=== PATIENT | female | born 1985 | race Hispanic/Latino ===

== ENCOUNTER 2023-06-09 10:40 | Day surgery (SDC) | payer SELFPAY ==
[2023-06-09 11:49] VITALS: BMI 32.8
[2023-06-09 11:54] LABS: Fetal Membranes Rupture No Membranes Rupture (No Rupture)
[2023-06-09 12:54] LABS: ALT (SGPT) 17 U/L (8-55); AST (SGOT) 17 U/L (5-34); Albumin 3.5 g/dL (3.5-5.0); Alkaline Phosphatase 110 U/L (40-110); Anion Gap 17 mmol/L (10-20); BUN (Urea Nitrogen) 7 mg/dL (7.0-18.7); Bilirubin, Total 0.4 mg/dL (0.2-1.2); Calc. Creatinine Clearance 189 mL/min (70-130); Calcium 9.2 mg/dL (7.8-10.44); Carbon Dioxide 17 mmol/L (22-29); Chloride 108 mmol/L (98-107); Estimated GFR 123; Glucose 76 mg/dL (70-105); Potassium 3.8 mmol/L (3.5-5.1); Protein, Total 6.5 g/dL (6.0-8.3); Sodium 138 mmol/L (136-145)
== END 2023-06-09 13:20 | disposition home or self-care (01) ==
LOC: CSHLD/OP 10:40
PROVIDERS: ATTEND Obstetrics & Gynecology
DX: O41.93X0 Disorder of amniotic fluid and membranes, unspecified, third trimester, not applicable or unspecified (principal); O99.213 Obesity complicating pregnancy, third trimester; E66.9 Obesity, unspecified; O26.893 Other specified pregnancy related conditions, third trimester; L29.9 Pruritus, unspecified; Z3A.35 35 weeks gestation of pregnancy; Z79.82 Long term (current) use of aspirin; Z90.49 Acquired absence of other specified parts of digestive tract
CPT/HCPCS: 80053; 82239; 84112; 87480; 87510; 87660

== ENCOUNTER 2023-07-02 19:00 | Inpatient (IN) | payer MEDICAID, OTHER, SELFPAY ==
[2023-07-02 19:38] VITALS: BMI 34.4
[2023-07-02] MEDS ORDERED: Bupivacaine 0.25% HCL 30 ML VIAL ONE (19:39)
[2023-07-02] MEDS ORDERED: hydrALAZINE 20 MG/ML VIAL SLOW IVP PRN (19:59)
[2023-07-02] MEDS ORDERED: Lidocaine 1% (PF) 30 ML VIAL SC PRN (19:59)
[2023-07-02] MEDS ORDERED: Ondansetron PF 4 MG/2 ML Vial IVP PRN (19:59)
[2023-07-02] MEDS ORDERED: Promethazine HCl 25 MG/ML VIAL IM PRN (19:59)
[2023-07-02] MEDS ORDERED: Oxytocin 30 units/NS 500 ML 500 ML IV SCH ×2 (20:00)
[2023-07-02] MEDS ORDERED: Misoprostol 100 MCG TAB VAG SCH (20:00)
[2023-07-02] MEDS ORDERED: Carboprost 250 MCG/ML AMP IM PRN (20:02)
[2023-07-02] MEDS ORDERED: Methylergonovine 0.2 MG/ML VIAL IM PRN (20:02)
[2023-07-02] MEDS ORDERED: Misoprostol 200 MCG TAB PR PRN (20:02)
[2023-07-02] MEDS ORDERED: Tranexamic Acid 1,000 MG/10 ML VIAL IVP PRN (20:02)
[2023-07-02] MEDS: Lactated Ringer's 1,000 ML IV SCH (20:15)
[2023-07-02 20:38] LABS: Hematocrit 37.3 % (34.9-44.5); Hemoglobin 12.3 g/dL (12.0-15.5); Mean Corpuscular Hemoglobin 29.4 pg (27.0-33.0); Mean Corpuscular Volume 89.2 fl (81.6-98.3); Mean Platelet Volume 11.7 fl (7.4-10.4); Platelet Count 242 10x3/uL (150-450); RBC Distribution Width 15.4 % (11.5-14.5); Red Blood Cell (RBC) Count 4.18 10x6/uL (3.90-5.03); White Blood Cell (WBC) Count 8.4 10x3/uL (3.5-10.5)
[2023-07-02 21:09] LABS: Hep B Surf Ag - L&D Non-Reactive S/CO (NonReactive); Syphilis Antibody Nonreactive (Nonreactive); Syphilis Antibody Index 0.06 S/CO (<1.00 Non-Reactive)
[2023-07-02] MEDS: Misoprostol 100 MCG TAB VAG SCH (21:26)
[2023-07-02] MEDS ORDERED: Acetaminophen 325 MG TAB PO PRN (21:40)
[2023-07-03] MEDS: Misoprostol 100 MCG TAB VAG SCH ×2 (00:35→05:28)
[2023-07-03] MEDS: Lactated Ringer's 1,000 ML IV SCH (05:31)
[2023-07-03] MEDS ORDERED: fentaNYL/Ropivacaine Epidural 100 ML ONE (09:33)
[2023-07-03] MEDS ORDERED: Dexamethasone 4 mg/ml Vial ONE (10:23)
[2023-07-03] MEDS ORDERED: Ondansetron PF 4 MG/2 ML Vial ONE (10:23)
[2023-07-03] MEDS ORDERED: Oxytocin 10 UNITS/ML VIAL ONE (10:23)
[2023-07-03] MEDS ORDERED: Phenylephrine 10 MG/ML VIAL ONE (10:23)
[2023-07-03] MEDS ORDERED: Famotidine/PF 20 mg/2ml Vial ONE (10:24)
[2023-07-03] MEDS ORDERED: Lidocaine 2% MPF 10 ML AMP (For Epidural Use) ONE (10:24)
[2023-07-03] MEDS ORDERED: Benzocaine-Menthol 82.5 ML CAN TOP PRN (12:11)
[2023-07-03] MEDS ORDERED: Bisacodyl 10 MG SUPP PR PRN (12:11)
[2023-07-03] MEDS ORDERED: hydrALAZINE 20 MG/ML VIAL SLOW IVP PRN (12:11)
[2023-07-03] MEDS ORDERED: Ondansetron PF 4 MG/2 ML Vial IVP PRN ×2 (12:11→15:15)
[2023-07-03] MEDS ORDERED: Promethazine HCl 25 MG/ML VIAL IM PRN ×2 (12:11→15:15)
[2023-07-03] MEDS ORDERED: Milk Of Magnesia 30 ML UDCUP PO PRN (12:11)
[2023-07-03] MEDS ORDERED: Preparation H Ointment 28 GM TUBE PR PRN (12:11)
[2023-07-03] MEDS ORDERED: Boostrix 0.5 ML (Tdap) VIAL (>/=7 yrs of age) IM ONE (12:11)
[2023-07-03] MEDS ORDERED: Lanolin Ointment 7 GM TUBE TOP PRN (12:11)
[2023-07-03] MEDS ORDERED: diphenhydrAMINE 25 MG CAP PO PRN (12:11)
[2023-07-03] MEDS: Ibuprofen 800 MG TAB PO SCH ×2 (12:53→21:04)
[2023-07-03] MEDS: Ferrous Sulfate 325 MG TAB PO SCH (13:53)
[2023-07-03] MEDS ORDERED: Moisturizing Cream (Eucerin) 113 GM JAR TOP PRN (15:15)
[2023-07-03] MEDS ORDERED: Acetaminophen 325 MG TAB PO PRN ×2 (15:15→20:25)
[2023-07-03] MEDS ORDERED: diphenhydrAMINE 50 MG/ML VIAL IVP PRN (15:15)
[2023-07-03] MEDS ORDERED: Naloxone HCl 0.4 mg/ml Vial IVP PRN ×2 (15:15)
[2023-07-03] MEDS ORDERED: Communication Order-Pharmacy FS SCH (15:15)
[2023-07-03] MEDS ORDERED: Lactated Ringer's 500 ML IV PRN (15:15)
[2023-07-03] MEDS ORDERED: ePHEDrine Sulfate 50 MG/10 ML VIAL SLOW IVP PRN (15:15)
[2023-07-03] MEDS ORDERED: fentaNYL 2 mcg/Ropivacaine 0.2% Epidural 100 ML CADD EPIDURAL SCH (15:15)
[2023-07-03] MEDS ORDERED: HYDROcodone/Acetaminophen 5/325 mg Tablet PO PRN (20:25)
[2023-07-03] MEDS: Docusate 100 MG CAP PO SCH (21:04)
[2023-07-04] MEDS: Ibuprofen 800 MG TAB PO SCH ×2 (05:15→14:00)
[2023-07-04] MEDS: Ferrous Sulfate 325 MG TAB PO SCH ×2 (08:01→20:24)
[2023-07-04] MEDS: Docusate 100 MG CAP PO SCH (08:04)
[2023-07-04] MEDS ORDERED: Prenatal Vitamin 1 TAB PO SCH (09:00)
[2023-07-04 11:37] VITALS: BP 119/79; TEMP 98.3
== END 2023-07-04 17:45 | disposition home or self-care (01) | DRG 807 ==
LOC: CSHLD 19:00 → CSHPP 07-03 12:58
PROVIDERS: ADMIT Obstetrics & Gynecology; ATTEND Obstetrics & Gynecology
PROC: 10E0XZZ Delivery of Products of Conception, External Approach (ICD-10-PCS; principal; 2023-07-03)
PROC: 0HQ9XZZ Repair Perineum Skin, External Approach (ICD-10-PCS; 2023-07-03)
DX: O16.4 Unspecified maternal hypertension, complicating childbirth (principal); Z37.0 Single live birth; Z3A.38 38 weeks gestation of pregnancy; O99.214 Obesity complicating childbirth; Z82.49 Family history of ischemic heart disease and other diseases of the circulatory system; Z90.49 Acquired absence of other specified parts of digestive tract; O70.0 First degree perineal laceration during delivery
CPT/HCPCS: 36415; 85027; 86780; 86850; 86900; 86901; 87340; J1100; J2370; J2405; J2590; J7120; S0020; S0028